=== PATIENT | female | born 1955 | race Caucasian/White ===

== ENCOUNTER 2018-10-09 14:42 | Inpatient (IN) | payer OTHER ==
[2018-10-09] MEDS ORDERED: SODIUM CHLORIDE 1,000 ML IV STA ×2 (14:56→17:15)
--- NOTE | 2018-10-09 14:56 | PDOC ---
Rapid Medical Evaluation Chief Complaint: Nausea Time Seen by Provider: 10/09/18 14:55 Medical Evaluation: Allergies Allergy/AdvReac Type Severity Reaction Status Date / Time No Known Allergies Allergy Verified 10/09/18 14:55 10/09/18 16:41 I have performed a brief in-person evaluation of this patient. The patient presents with a chief complaint of: fever, nausea Pertinent physical exam findings:stable and in NAD, non-focal I have ordered the following:labs The patient will proceed to the ED for further evaluation.
[2018-10-09] MEDS ORDERED: ONDANSETRON 4 MG/2 ML VIAL IVPUSH ONE (14:57)
--- NOTE | 2018-10-09 15:01 | PDOC ---
History of Present Illness - General Chief Complaint: Nausea Stated Complaint: NAUSEA/CHILLS/FEVER Time Seen by Provider: 10/09/18 14:55 - History of Present Illness Initial Comments: 10/09/18 16:58 The patient is a 63 year old female with a history of HTN who presents for evaluation of nausea, chills, and fever. The patient reports severe nausea with associated fever to 103 beginning 3 days ago that has been persistent prompting her presentation to the ED for further evaluation. She notes that her urine has been extremely foul smelling throughout this time as well. She otherwise denies headache, SOB, chest pain, vomiting, abdominal pain, or changes with bowel movements. Past History - Past Medical History Allergies/Adverse Reactions: Allergies Allergy/AdvReac Type Severity Reaction Status Date / Time No Known Allergies Allergy Verified 10/09/18 14:55 Home Medications: Ambulatory Orders Olmesartan/Hydrochlorothiazide [Benicar Hct 40-12.5 mg Tablet] 1 each PO DAILY 10/09/18 - Suicide/Smoking/Psychosocial Hx Smoking History: Never smoked Information on smoking cessation initiated: No Hx Alcohol Use: No Drug/Substance Use Hx: No Review of Systems - Review of Systems Comments:: 10/09/18 17:02 Constitutional: Fevers, chills, No fatigue, malaise HEENT: No Rhinorrhea, nasal congestion, visual changes Cardiovascular: No chest pain, syncope, palpitations, lightheadedness Respiratory: No Cough, SOB, Hemoptysis, Gastrointestinal: Nausea No Abdominal pain, Vomiting, Constipation, Diarrhea, Melena Genitourinary: Foul smelling urine. No Dysuria, Frequency, Urgency, Hesitancy, Hematuria, Flank pain Musculoskeletal: No Myalgia, arthralgia Skin: No rashes, itching, bruising, pallor Neurologic: No Headache, Dizziness, Numbness, Weakness, or Tingling Psychiatric: No Hallucinations. No SI or HI *Physical Exam - Vital Signs Last Vital Signs Temp Pulse Resp BP Pulse Ox 103.0 F H 109 H 16 123/60 96 10/09/18 14:55 10/09/18 14:55 10/09/18 14:55 10/09/18 14:55 10/09/18 14:55 - Physical Exam Comments: 10/09/18 17:05 General Appearance: Nourished. No Apparent Distress HEENT: No Pharyngeal Erythema, Tonsillar Exudate, Tonsillar Erythema Neck: No Cervical Lymphadenopathy Respiratory/Chest: Lungs Clear, Normal Breath Sounds. No Crackles, Rales, Rhonchi, Wheezing Cardiovascular: Regular Rhythm, Tachycardic Rate. No Murmur, Gallops, Rubs Gastrointestinal/Abdominal: Normal Bowel Sounds, Soft. No Guarding, Rebound, Tenderness Musculoskeletal: No CVA Tenderness Extremity: Normal Capillary Refill Integumentary: Normal Color, Dry, Warm Neurologic: Fully Oriented, Alert, Normal Mood/Affect, Normal Response, Heart Score/ECG Review #1 ECG reviewed & interpreted by me at: 17:06 10/09/18 17:06 HR 111 NM 148 QRS 94 QTc 443 Sinus Tachycardia Incomplete right bundle branch block No Acute ST Changes ED Treatment Course - LABORATORY CBC & Chemistry Diagram: 10/09/18 15:20 10/09/18 15:16 Medical Decision Making - Medical Decision Making 10/09/18 17:09 The patient is a 63 year old female with a history of HTN who presents for evaluation of nausea, chills, and fever. Differential includes but is not limited to: Sepsis, UTI, Infectious, Metabolic Derangement. Given the patient' s history and physical exam, we are concerned for sepsis due to a UTI. We will obtain a cbc, cmp, troponin, lactate, coags, ua, blood cultures, urine cultures , ekg, chest plain film to evaluate further. We will treat with tylenol, iv fluids, zofran, ceftriaxone, and continue to monitor and reassess while here in the ED. The patient will likely require admission for further management. 10/09/18 23:54 CBC demonstrated elevated WBC to 11. CMP is unremarkable. Troponin, lactate are unremarkable. UA demonstrates positive nitrites, positive leuk esterase, with elevated WBC consistent with a UTI. Chest plain film is unremarkable. The patient will require admission for further monitoring and management. We discussed the case with the admitting team who accepted the patient for admission. *DC/Admit/Observation/Transfer Diagnosis at time of Disposition: Sepsis Qualifiers: Sepsis type: sepsis due to unspecified organism Qualified Code(s): A41.9 - Sepsis, unspecified organism UTI (urinary tract infection) Qualifiers: Urinary tract infection type: site unspecified Hematuria presence: without hematuria Qualified Code(s): N39.0 - Urinary tract infection, site not specified - Discharge Dispostion Condition at time of disposition: Stable Decision to Admit order: Yes - Referrals - Patient Instructions - Post Discharge Activity
[2018-10-09] MEDS ORDERED: ACETAMINOPHEN INJECTION 100 ML IVPB ONE (15:28)
[2018-10-09] MEDS ORDERED: ONDANSETRON 4 MG/2 ML VIAL ONE (15:29)
[2018-10-09] MEDS ORDERED: ACETAMINOPHEN 1000 MG/100 ML VIAL (NON FORMULARY) IVPB ONE (15:32)
[2018-10-09 15:36] LABS: BASO % 0.3 % (0-2.0); EOS % 0.1 % (0-4.5); HEMATOCRIT 35.3 % (32.4-45.2); HEMOGLOBIN 12.1 GM/dL (10.7-15.3); LYMPH % 14.6 % (8-40); MCH 29.7 pg (25.7-33.7); MCHC 34.4 g/dl (32.0-36.0); MEAN CELL VOLUME 86.3 fl (80-96); MEAN PLT VOLUME 7.4 fl (7.5-11.1); MONO % 11.5 % (3.8-10.2); NEUT % 73.5 % (42.8-82.8); PLATELET COUNT 274 K/MM3 (134-434); RBC 4.09 M/mm3 (3.60-5.2); RDW 12.9 % (11.6-15.6); WHITE BLOOD COUNT 11.8 K/mm3 (4.0-10.0)
[2018-10-09 15:50] LABS: INR 1.17 (0.83-1.09); PROTHROMBIN TIME (PATIENT) 13.8 SEC (9.7-13.0)
[2018-10-09 15:52] LABS: ACTIVATED PTT 30.9 SECONDS (25.2-36.5)
[2018-10-09 16:11] LABS: ALBUMIN 3.3 g/dl (3.4-5.0); ALK PHOS 80 U/L (45-117); ANION GAP 9 MMOL/L (8-16); BILIRUBIN,TOTAL 0.6 mg/dL (0.2-1); BLOOD UREA NITROGEN 16.9 mg/dL (7-18); CALCIUM 8.8 mg/dL (8.5-10.1); CHLORIDE 100 mmol/L (98-107); CO2 25 mmol/L (21-32); CREATININE 0.7 mg/dL (0.55-1.3); GLUCOSE,RANDOM 99 mg/dL (74-106); LIPASE 110 U/L (73-393); POTASSIUM 3.8 mmol/L (3.5-5.1); SGOT/AST 12 U/L (15-37); SGPT/ALT 12 U/L (13-61); SODIUM 135 mmol/L (136-145); TOT PROT 7.3 g/dl (6.4-8.2)
[2018-10-09 16:56] LABS: EPI CELLS 2.3 /HPF (0-5/HPF); HYALINE CASTS 6 /lpf (0-8); PH,URINE 5.5 (5.0-8.0); URINE APPEARANCE CLOUDY; URINE BACTERIA 3842.5 /hpf (NEGATIVE); URINE BILIRUBIN NEGATIVE (NEGATIVE); URINE COLOR YELLOW; URINE GLUCOSE (UA) NEGATIVE (NEGATIVE); URINE KETONE 1+ (NEGATIVE); URINE LEUK ESTERASE 2+ (NEGATIVE); URINE NITRITE POSITIVE (NEGATIVE); URINE PROTEIN 1+ (NEGATIVE); URINE RBC 6 /hpf (0-4); URINE WBC 82 /hpf (0-5)
[2018-10-09] MEDS ORDERED: CEFTRIAXONE 1 GM in DEXTROSE 5%-WATER - 100 ML IVPB ONE (16:58)
[2018-10-09] MEDS ORDERED: cefTRIAXone SODIUM 1 GM VIAL ONE (17:30)
--- NOTE | 2018-10-09 17:45 | HP ---
CHIEF COMPLAINT: nausea, weakness, fevers, foul smelling urine PCP: Dr. Green HISTORY OF PRESENT ILLNESS: 63 yof with PMHx of HTN, comes with 3-4 days of nausea, poor oral intake, weakness, foul smelling urine. Noted with fevers upto 103. No recent travel, antibiotics, no h/o recurrent UTIs. Denies any abdominal or flank pain, dysuria, urinary frequency or urgency, but does endorse foul smelling dark urine. 12 point ROS done, neg except above. No URI like illness, cough, dyspnea, chest pain, palpitations, changes in bowels, vomitting. ER course was notable for: (1) Fever 103 (2) NS 1 L IVF bolus (3) Ceftriaxone Recent Travel: Denies PAST MEDICAL HISTORY: HTN PAST SURGICAL HISTORY: x 2 Social History: Smoking:Denies Alcohol:occasional wine Drugs: denies Works in physician's office, lives with , independent in ADLs Family History: Allergies No Known Allergies Allergy (Verified 10/09/18 14:55) HOME MEDICATIONS: Home Medications Medication Instructions Recorded Olmesartan/Hydrochlorothiazide 1 each PO DAILY 10/09/18 [Benicar Hct 40-12.5 mg Tablet] REVIEW OF SYSTEMS 12 point ROS done, neg except above. PHYSICAL EXAMINATION Vital Signs - 24 hr 10/09/18 10/09/18 14:55 17:14 Temperature 103.0 F H 98.8 F Pulse Rate 109 H Pulse Rate [ 84 Left Radial] Respiratory 16 16 Rate Blood Pressure 123/60 Blood Pressure 100/52 L [Left] O2 Sat by Pulse 96 96 Oximetry (%) Intake & Output 10/06/18 10/07/18 10/08/18 10/09/18 23:59 23:59 23:59 23:59 Weight 142 lb GENERAL: Awake, alert, and fully oriented, in no acute distress. HEAD: Normal with no signs of trauma. EYES: Pupils equal, round and reactive to light, extraocular movements intact, sclera anicteric, conjunctiva clear. No lid lag. EARS, NOSE, THROAT: Ears normal, nares patent, oropharynx clear without exudates. Moist mucous membranes. NECK: Normal range of motion, supple, no JVD LUNGS: Breath sounds equal, clear to auscultation bilaterally. No wheezes, and no crackles. No accessory muscle use. HEART: Regular rate and rhythm, normal S1 and S2 ABDOMEN: Soft, nontender, not distended, normoactive bowel sounds, no guarding, no rebound, no masses. No hepatomegaly or splenomegaly. No suprapubic or CVA tenderness MUSCULOSKELETAL: Normal range of motion at all joints. No bony deformities or tenderness. No CVA tenderness. UPPER EXTREMITIES: 2+ pulses, warm, well-perfused. No cyanosis. No clubbing. No peripheral edema. LOWER EXTREMITIES: 2+ pulses, warm, well-perfused. No calf tenderness. No peripheral edema. NEUROLOGICAL: AAOx3, facial symmetry, sensation intact to light touch, Cranial nerves II-XII intact. Normal speech. Gait not observed PSYCHIATRIC: Cooperative. Good eye contact. Appropriate mood and affect. SKIN: Warm, dry, normal turgor, no rashes or lesions noted, normal capillary refill. Laboratory Results - last 24 hr 10/09/18 10/09/18 10/09/18 15:16 15:16 15:20 WBC 11.8 H RBC 4.09 Hgb 12.1 Hct 35.3 MCV 86.3 MCH 29.7 MCHC 34.4 RDW 12.9 Plt Count 274 MPV 7.4 L Absolute Neuts (auto) 8.7 H Neutrophils % 73.5 Lymphocytes % 14.6 Monocytes % 11.5 H Eosinophils % 0.1 Basophils % 0.3 Nucleated RBC % 0 PT with INR 13.80 H INR 1.17 H PTT (Actin FS) 30.9 Sodium 135 L Potassium 3.8 Chloride 100 Carbon Dioxide 25 Anion Gap 9 BUN 16.9 Creatinine 0.7 Est GFR (CKD-EPI)AfAm 106.87 Est GFR (CKD-EPI)NonAf 92.21 Random Glucose 99 Lactic Acid Calcium 8.8 Total Bilirubin 0.6 AST 12 L ALT 12 L Alkaline Phosphatase 80 Troponin I < 0.02 Total Protein 7.3 Albumin 3.3 L Lipase 110 Urine Color Urine Appearance Urine pH Ur Specific [place] Urine Protein Urine Glucose (UA) Urine Ketones Urine Blood Urine Nitrite Urine Bilirubin Urine Urobilinogen Ur Leukocyte Esterase Urine WBC (Auto) Urine RBC (Auto) Urine Casts (Auto) U Epithel Cells (Auto) Urine Bacteria (Auto) 10/09/18 10/09/18 15:25 16:35 WBC RBC Hgb Hct MCV MCH MCHC RDW Plt Count MPV Absolute Neuts (auto) Neutrophils % Lymphocytes % Monocytes % Eosinophils % Basophils % Nucleated RBC % PT with INR INR PTT (Actin FS) Sodium Potassium Chloride Carbon Dioxide Anion Gap BUN Creatinine Est GFR (CKD-EPI)AfAm Est GFR (CKD-EPI)NonAf Random Glucose Lactic Acid 0.8 Calcium Total Bilirubin AST ALT Alkaline Phosphatase Troponin I Total Protein Albumin Lipase Urine Color Yellow Urine Appearance Cloudy Urine pH 5.5 Ur Specific [place] 1.017 Urine Protein 1+ H Urine Glucose (UA) Negative Urine Ketones 1+ H Urine Blood 3+ H Urine Nitrite Positive H Urine Bilirubin Negative Urine Urobilinogen 1.0 Ur Leukocyte Esterase 2+ H Urine WBC (Auto) 82 Urine RBC (Auto) 6 Urine Casts (Auto) 6 U Epithel Cells (Auto) 2.3 Urine Bacteria (Auto) 3842.5 EKG sinus tach, incomplete RBBB CXR images reviewed, await official read ASSESSMENT/PLAN: 63 yof with PMHx of HTN admitted with sepsis secondary to UTI -Sepsis secondary to UTI -Dehydration -HTN Plan: Ceftriaxone, blood/urine cultures. Aggressive hydration, monitor hemodynamics. No abdominal or flank pain and benign abdominal exam. Imaging if fevers fail to resolve or new symptoms/concerns. Hold anti-hypertensives Supportive tx with zofran/PPI DVTPPX Lovenox Dispo in 48 hours pending clinical improvement and cultures. Plan discussed with patient and at bedside in detail, all questions answered. total admit time 65 min. Visit type - Emergency Visit Emergency Visit: Yes ED Registration Date: 10/09/18 Care time: The patient presented to the Emergency Department on the above date and was hospitalized for further evaluation of their emergent condition. - New Patient This patient is new to me today: Yes Date on this admission: 10/09/18 - Critical Care Critical Care patient: No
[2018-10-09] MEDS ORDERED: ONDANSETRON 4 MG/2 ML VIAL IVPUSH PRN (17:53)
--- NOTE | 2018-10-09 18:13 | PDOC ---
Documentation entered by Leti Benavides SCRIBE, acting as scribe for Ana M Ríos MD. Ana M Ríos MD: This documentation has been prepared by the induibe, Leti Benavides SCRIBE, under my direction and personally reviewed by me in its entirety. I confirm that the documentation accurately reflects all work, treatment, procedures, and medical decision making performed by me. Attending Attestation - Resident Resident Name: Noah Trujillo - ED Attending Attestation I have performed the following: I have examined & evaluated the patient, The case was reviewed & discussed with the resident, I agree w/resident's findings & plan, Exceptions are as noted - HPI HPI: 10/09/18 16:09 The patient is a 63-year-old female with no reported past medical history presents to the emergency department with fever, chills, headache, and nausea since Friday (10/06). The patient reports on Friday evening he went out for dinner, where she started to have chills. The patient states she through the room was close, however, when she went to the bathroom, she noticed foul smelling urine. The patient reports since then, shes been having extreme nausea , headache, fever, and chills. The patient reports she had a high-grade temperature of 103. Denies recent travel, unusual food, known tick bite, redness , new rashes, neck pain, abdominal/flank pain, or vomiting. Allergies: NKDA Social history: No reported use of tobacco, alcohol or recreational drugs. PCP: Dr. Coleman. - Physicial Exam PE: 10/09/18 17:16 GENERAL: Awake, alert and oriented. The patient is in no acute distress. ENT: Ears normal, nares patent, oropharynx clear without exudates. Moist mucous membranes. NECK: Normal range of motion, supple, no nuchal rigidity LUNGS: Breath sounds equal, clear to auscultation bilaterally. No wheezes, and no crackles. HEART: Regular rate and rhythm, normal S1 and S2 without murmur, rub or gallop. ABDOMEN: Soft, nontender, normoactive bowel sounds. No guarding, no rebound. No masses palpable. No CVA tenderness. EXTREMITIES: Normal range of motion, no edema. NEUROLOGICAL: Answering all questions. Cranial nerves II through XII grossly intact. Normal speech. No focal neurological deficits. SKIN: +felt Warm, Dry, normal turgor, no rashes or lesions noted. - Medical Decision Making 10/09/18 15:45 63 yo F presenting to the ER with a complaint of fevers Symptoms present for 3 days EKG - Sinus rhythm rate of 111 bpm, axis nml, intervals nml, no st elevation or depression, incomplete RBBB Laboratory Tests 10/09/18 15:20 WBC 11.8 H Hgb 12.1 Hct 35.3 Plt Count 274 10/09/18 15:46 10/09/18 18:02 Laboratory Tests 10/09/18 10/09/18 15:16 16:35 Sodium 135 L Potassium 3.8 Chloride 100 Carbon Dioxide 25 BUN 16.9 Est GFR (CKD-EPI)AfAm 106.87 Troponin I < 0.02 Urine Blood 3+ H Urine Nitrite Positive H Ur Leukocyte Esterase 2+ H Urine WBC (Auto) 82 Urine RBC (Auto) 6 Urine Bacteria (Auto) 3842.5 10/09/18 18:11 CXR does not appear to show an infiltrate UA appears positive Will give Ceftriaxone Will hydrate Clinical Impression: UTI, initial presentation
[2018-10-09] MEDS: SODIUM CHLORIDE 1,000 ML IV SCH (20:49)
[2018-10-09 22:44] VITALS: BMI 25.5
[2018-10-10] MEDS: ACETAMINOPHEN 325 MG TABLET (FP) PO PRN ×3 (00:13→20:30)
[2018-10-10] MEDS: SODIUM CHLORIDE 1,000 ML IV SCH ×3 (05:19→18:42)
[2018-10-10 07:55] LABS: BASO % 0.5 % (0-2.0); EOS % 0.2 % (0-4.5); HEMATOCRIT 31.9 % (32.4-45.2); HEMOGLOBIN 10.7 GM/dL (10.7-15.3); LYMPH % 23.4 % (8-40); MCH 29.4 pg (25.7-33.7); MCHC 33.5 g/dl (32.0-36.0); MEAN CELL VOLUME 87.8 fl (80-96); MEAN PLT VOLUME 7.7 fl (7.5-11.1); MONO % 15.1 % (3.8-10.2); NEUT % 60.8 % (42.8-82.8); RBC 3.63 M/mm3 (3.60-5.2); RDW 13.1 % (11.6-15.6); WHITE BLOOD COUNT 12.2 K/mm3 (4.0-10.0)
[2018-10-10 08:18] LABS: ALBUMIN 2.6 g/dl (3.4-5.0); BILIRUBIN,TOTAL 0.6 mg/dL (0.2-1); BLOOD UREA NITROGEN 10.8 mg/dL (7-18); CREATININE 0.6 mg/dL (0.55-1.3); MAGNESIUM 2.2 mg/dL (1.8-2.4); PHOSPHOROUS 3.1 mg/dL (2.5-4.9); POTASSIUM 3.6 mmol/L (3.5-5.1); TOT PROT 6.1 g/dl (6.4-8.2)
[2018-10-10 09:05] LABS: PLATELET COUNT 216 K/MM3 (134-434)
[2018-10-10] MEDS ORDERED: DEXTROSE 5%-WATER - 50 ML IVPB ONE (09:33)
[2018-10-10] MEDS ORDERED: cefTRIAXone SODIUM 1 GM VIAL ONE (09:33)
[2018-10-10] MEDS ORDERED: ENOXAPARIN NA (PORCINE) 40 MG/0.4 ML DISP.SYRIN SQ SCH (10:00)
[2018-10-10] MEDS ORDERED: CEFTRIAXONE 1 GM in DEXTROSE 5%-WATER - 50 ML IVPB SCH (10:00)
[2018-10-10] MEDS: PANTOPRAZOLE 20 MG TABLET (FP) PO SCH (10:44)
--- NOTE | 2018-10-10 14:12 | PN ---
Physical Exam: SUBJECTIVE: Patient seen and examined, still with cloudy urine, some chills overnight. Continues to deny any abdominal or back pain, dyspnea or concerning otherwise OBJECTIVE: Vital Signs Period Temp Pulse Resp BP Sys/Farah Pulse Ox Last 24 Hr 98.7 F-103.0 F 72-109 16-20 94-123/52-68 96-100 GENERAL: The patient is awake, alert, and fully oriented, in no acute distress. HEAD: Normal with no signs of trauma. EYES: PERRL, extraocular movements intact, sclera anicteric, conjunctiva clear. No ptosis. ENT: Ears normal, nares patent, oropharynx clear without exudates, moist mucous membranes. NECK: Trachea midline, full range of motion, supple. LUNGS: Breath sounds equal, clear to auscultation bilaterally, no wheezes, no crackles, no accessory muscle use. HEART: Regular rate and rhythm, S1, S2 ABDOMEN: Soft, nontender, nondistended, normoactive bowel sounds, no guarding, no rebound, no suprapubic or CVA tenderness EXTREMITIES: 2+ pulses, warm, well-perfused, no edema. PSYCH: Normal mood, normal affect. SKIN: Warm, dry, normal turgor, no rashes or lesions noted Laboratory Results - last 24 hr 10/09/18 10/09/18 10/09/18 15:16 15:16 15:20 WBC 11.8 H RBC 4.09 Hgb 12.1 Hct 35.3 MCV 86.3 MCH 29.7 MCHC 34.4 RDW 12.9 Plt Count 274 MPV 7.4 L Absolute Neuts (auto) 8.7 H Neutrophils % 73.5 Lymphocytes % 14.6 Monocytes % 11.5 H Eosinophils % 0.1 Basophils % 0.3 Nucleated RBC % 0 PT with INR 13.80 H INR 1.17 H PTT (Actin FS) 30.9 Sodium 135 L Potassium 3.8 Chloride 100 Carbon Dioxide 25 Anion Gap 9 BUN 16.9 Creatinine 0.7 Est GFR (CKD-EPI)AfAm 106.87 Est GFR (CKD-EPI)NonAf 92.21 Random Glucose 99 Lactic Acid Calcium 8.8 Phosphorus Magnesium Total Bilirubin 0.6 AST 12 L ALT 12 L Alkaline Phosphatase 80 Troponin I < 0.02 Total Protein 7.3 Albumin 3.3 L Lipase 110 Urine Color Urine Appearance Urine pH Ur Specific [place] Urine Protein Urine Glucose (UA) Urine Ketones Urine Blood Urine Nitrite Urine Bilirubin Urine Urobilinogen Ur Leukocyte Esterase Urine WBC (Auto) Urine RBC (Auto) Urine Casts (Auto) U Epithel Cells (Auto) Urine Bacteria (Auto) 10/09/18 10/09/18 10/10/18 15:25 16:35 07:34 WBC 12.2 H RBC 3.63 Hgb 10.7 Hct 31.9 L MCV 87.8 MCH 29.4 MCHC 33.5 RDW 13.1 Plt Count 216 D MPV 7.7 Absolute Neuts (auto) 7.4 Neutrophils % 60.8 Lymphocytes % 23.4 D Monocytes % 15.1 H Eosinophils % 0.2 D Basophils % 0.5 Nucleated RBC % 0 PT with INR INR PTT (Actin FS) Sodium Potassium Chloride Carbon Dioxide Anion Gap BUN Creatinine Est GFR (CKD-EPI)AfAm Est GFR (CKD-EPI)NonAf Random Glucose Lactic Acid 0.8 Calcium Phosphorus Magnesium Total Bilirubin AST ALT Alkaline Phosphatase Troponin I Total Protein Albumin Lipase Urine Color Yellow Urine Appearance Cloudy Urine pH 5.5 Ur Specific [place] 1.017 Urine Protein 1+ H Urine Glucose (UA) Negative Urine Ketones 1+ H Urine Blood 3+ H Urine Nitrite Positive H Urine Bilirubin Negative Urine Urobilinogen 1.0 Ur Leukocyte Esterase 2+ H Urine WBC (Auto) 82 Urine RBC (Auto) 6 Urine Casts (Auto) 6 U Epithel Cells (Auto) 2.3 Urine Bacteria (Auto) 3842.5 10/10/18 07:34 WBC RBC Hgb Hct MCV MCH MCHC RDW Plt Count MPV Absolute Neuts (auto) Neutrophils % Lymphocytes % Monocytes % Eosinophils % Basophils % Nucleated RBC % PT with INR INR PTT (Actin FS) Sodium 142 Potassium 3.6 Chloride 110 H Carbon Dioxide 25 Anion Gap 7 L BUN 10.8 Creatinine 0.6 Est GFR (CKD-EPI)AfAm 112.43 Est GFR (CKD-EPI)NonAf 97.01 Random Glucose 95 Lactic Acid Calcium 8.0 L Phosphorus 3.1 Magnesium 2.2 Total Bilirubin 0.6 AST 25 ALT 20 Alkaline Phosphatase 70 Troponin I Total Protein 6.1 L Albumin 2.6 L Lipase Urine Color Urine Appearance Urine pH Ur Specific [place] Urine Protein Urine Glucose (UA) Urine Ketones Urine Blood Urine Nitrite Urine Bilirubin Urine Urobilinogen Ur Leukocyte Esterase Urine WBC (Auto) Urine RBC (Auto) Urine Casts (Auto) U Epithel Cells (Auto) Urine Bacteria (Auto) Active Medications Generic Name Dose Route Start Last Admin Trade Name Antonio PRN Reason Stop Dose Admin Acetaminophen 650 mg 10/09/18 20:22 10/10/18 12:49 Tylenol - PO 650 mg Q4H PRN Administration FEVER Sodium Chloride 1,000 mls @ 125 mls/hr 10/09/18 18:00 10/10/18 05:19 Normal Saline - IV 125 mls/hr ASDIR DIMA Administration Ceftriaxone Sodium 1 gm/ 50 mls @ 100 mls/hr 10/10/18 10:00 10/10/18 10:45 Dextrose IVPB 100 mls/hr DAILY DIMA Administration Protocol Ondansetron HCl 4 mg 10/09/18 17:53 10/10/18 00:13 Zofran Injection IVPUSH 4 mg Q6H PRN Administration NAUSEA Pantoprazole Sodium 20 mg 10/10/18 10:00 10/10/18 10:44 Protonix - PO 20 mg DAILY DIMA Administration CT A/P and renal/Bladder US results reviewed ASSESSMENT/PLAN: 63 yof with PMHx of HTN admitted with sepsis secondary to UTI -Acute right pyelonephritis/Complicated UTI with sepsis -Suspect obstructive uropathy with right ureteral stone/dilatation -Dehydration -HTN Plan: Persistent fevers Imaging results reviewed Urology consulted, case discussed with Dr. Guerrero, recommend IR input. Possible PCN vs cystscopy. Case discussed with Dr. Castillo, to review images and address PCN accordingly. Monitor hemodynamics closely. NPO for now, discussed with RN (per patient last meal breakfast this AM) Aggressive hydration Hold anti-hypertensives. Supportive tx with zofran/PPI DVTPPX Hold lovenox for now Dispo pending clinical course Plan discussed with patient and nursing, all questions answered. Visit type - Emergency Visit Emergency Visit: Yes ED Registration Date: 10/09/18 Care time: The patient presented to the Emergency Department on the above date and was hospitalized for further evaluation of their emergent condition. - New Patient This patient is new to me today: No - Critical Care Critical Care patient: No - Discharge Referral Referred to [facility] No
--- NOTE | 2018-10-10 16:04 | CON.GU ---
Consult Consult Specialty:: Urology Referred by:: Dr leal Reason for Consultation:: 63 yo female w 4 day hx of nausea and cloudy urine - History of Present Illness Chief Complaint: UTI fever - Past Medical History ...LMP: 09/13/07 ...: No - Alcohol/Substance Use Hx Alcohol Use: No - Smoking History Smoking history: Never smoked Have you smoked in the past 12 months: No Home Medications - Allergies Allergies/Adverse Reactions: Allergies Allergy/AdvReac Type Severity Reaction Status Date / Time No Known Allergies Allergy Verified 10/09/18 14:55 - Home Medications Home Medications: Ambulatory Orders Olmesartan/Hydrochlorothiazide [Benicar Hct 40-12.5 mg Tablet] 1 each PO DAILY 10/09/18 Physical Exam- Vital Signs: Vital Signs Temperature 102.6 F H 10/10/18 14:22 Pulse Rate 93 H 10/10/18 14:22 Respiratory Rate 18 10/10/18 14:22 Blood Pressure 106/56 L 10/10/18 14:22 O2 Sat by Pulse Oximetry (%) 100 10/10/18 09:00 Constitutional: Yes: Well Nourished Eyes: Yes: WNL HENT: Yes: WNL Cardiovascular: Yes: Regular Rate and Rhythm Respiratory: Yes: WNL Gastrointestinal: Yes: WNL Labs: CBC, BMP 10/10/18 07:34 10/10/18 07:34 Imaging - Results Cat Scan: Image Reviewed Ultrasound: Report Reviewed Problem List - Problems (1) UTI (urinary tract infection) Assessment/Plan: reviewed ct images and discussed case w Dr Bruno Does not appear to have hydronephrosis or obstruction some irregularity of the right kidney c/w infection Continue iv abx ID consult also CT urogram to r/o functional obstruction as is persistent fever Code(s): N39.0 - URINARY TRACT INFECTION, SITE NOT SPECIFIED Qualifiers: Urinary tract infection type: site unspecified Hematuria presence: without hematuria Qualified Code(s): N39.0 - Urinary tract infection, site not specified
[2018-10-10] MEDS ORDERED: DEXTROSE 5%-WATER 100 ML IVPB ONE (16:34)
[2018-10-10] MEDS ORDERED: MEROPENEM 1 GM VIAL (RESTRICTED TO ID) IVPB ONE (16:34)
[2018-10-10] MEDS: MEROPENEM 1 GM in DEXTROSE 5%-WATER 100 ML IVPB SCH (16:57)
[2018-10-10] MEDS ORDERED: MEROPENEM 1 GM in DEXTROSE 5%-WATER 100 ML IVPB SCH (18:00)
[2018-10-11] MEDS ORDERED: MEROPENEM 1 GM VIAL (RESTRICTED TO ID) IVPB ONE ×2 (02:22→09:38)
[2018-10-11] MEDS ORDERED: DEXTROSE 5%-WATER 100 ML IVPB ONE ×3 (02:23→16:48)
[2018-10-11] MEDS: MEROPENEM 1 GM in DEXTROSE 5%-WATER 100 ML IVPB SCH ×2 (02:34→10:08)
[2018-10-11] MEDS: SODIUM CHLORIDE 1,000 ML IV SCH (04:31)
[2018-10-11 07:29] LABS: BASO % 0.3 % (0-2.0); EOS % 1.4 % (0-4.5); HEMATOCRIT 28.9 % (32.4-45.2); HEMOGLOBIN 9.8 GM/dL (10.7-15.3); LYMPH % 24.5 % (8-40); MCH 29.4 pg (25.7-33.7); MCHC 33.8 g/dl (32.0-36.0); MEAN PLT VOLUME 7.7 fl (7.5-11.1); MONO % 12.4 % (3.8-10.2); NEUT % 61.4 % (42.8-82.8); RBC 3.33 M/mm3 (3.60-5.2); RDW 13.3 % (11.6-15.6); WHITE BLOOD COUNT 9.2 K/mm3 (4.0-10.0)
[2018-10-11 07:55] LABS: BLOOD UREA NITROGEN 8.4 mg/dL (7-18); CALCIUM 8.1 mg/dL (8.5-10.1); CREATININE 0.5 mg/dL (0.55-1.3); POTASSIUM 3.5 mmol/L (3.5-5.1)
[2018-10-11 08:37] LABS: PLATELET COUNT 227 K/MM3 (134-434)
[2018-10-11] MEDS: PANTOPRAZOLE 20 MG TABLET (FP) PO SCH (10:07)
--- NOTE | 2018-10-11 11:17 | PN ---
Physical Exam: SUBJECTIVE: Patient seen and examined, feels better, no further nausea or chills. Cloudy urine but no back or abdominal pain noted. OBJECTIVE: Vital Signs Period Temp Pulse Resp BP Sys/Farah Pulse Ox Last 24 Hr 97.8 F-102.6 F 64-93 16-18 104-120/44-67 95-97 Intake & Output 10/08/18 10/09/18 10/10/18 10/11/18 23:59 23:59 23:59 23:59 Intake Total 600 3810 1575 Output Total 800 Balance 600 3010 1575 Weight 148 lb 12.8 oz GENERAL: sitting in bed in no acute distress necK: soft, supple Chest: CTAB, no rales or wheezing Abdomen:soft, NT, ND, no CVA or suprapubic tenderness Extremities: no edema Psych: pleasant, co-operative Laboratory Results - last 24 hr 10/11/18 10/11/18 07:00 07:00 WBC 9.2 RBC 3.33 L Hgb 9.8 L Hct 28.9 L MCV 87.0 MCH 29.4 MCHC 33.8 RDW 13.3 Plt Count 227 MPV 7.7 Absolute Neuts (auto) 5.7 Neutrophils % 61.4 Lymphocytes % 24.5 Monocytes % 12.4 H Eosinophils % 1.4 D Basophils % 0.3 Nucleated RBC % 0 Sodium 142 Potassium 3.5 Chloride 110 H Carbon Dioxide 25 Anion Gap 7 L BUN 8.4 Creatinine 0.5 L Est GFR (CKD-EPI)AfAm 119.38 Est GFR (CKD-EPI)NonAf 103.00 Random Glucose 95 Calcium 8.1 L Active Medications Generic Name Dose Route Start Last Admin Trade Name Freq PRN Reason Stop Dose Admin Acetaminophen 650 mg 10/09/18 20:22 10/10/18 20:30 Tylenol - PO 650 mg Q4H PRN Administration FEVER Sodium Chloride 1,000 mls @ 125 mls/hr 10/09/18 18:00 10/11/18 04:31 Normal Saline - IV 125 mls/hr ASDIR DIMA Administration Meropenem 1 gm/ Dextrose 100 mls @ 200 mls/hr 10/10/18 16:30 10/11/18 10:08 IVPB 200 mls/hr Q8H-IV DIMA Administration Ondansetron HCl 4 mg 10/09/18 17:53 10/10/18 00:13 Zofran Injection IVPUSH 4 mg Q6H PRN Administration NAUSEA Pantoprazole Sodium 20 mg 10/10/18 10:00 10/11/18 10:07 Protonix - PO 20 mg DAILY DIMA Administration Microbiology 10/09/18 16:35 Urine - Urine Clean Catch Urine Culture - Preliminary Lactose Fermenting Neg Bacilli 10/09/18 17:35 Blood - Peripheral Venous Blood Culture - Preliminary NO GROWTH OBTAINED AFTER 24 HOURS, INCUBATION TO CONTINUE FOR 4 DAYS. 10/09/18 15:25 Blood - Peripheral Venous Blood Culture - Preliminary NO GROWTH OBTAINED AFTER 24 HOURS, INCUBATION TO CONTINUE FOR [address] A/P with contrast prelim read results reviewed ASSESSMENT/PLAN: 63 yof with PMHx of HTN admitted with sepsis secondary to UTI -Acute right pyelonephritis/Complicated UTI with sepsis -Suspect obstructive uropathy with right ureteral stone/dilatation -Dehydration -HTN Plan: CT urogram prelim results reviewed, pyelonephritis but no evidence of renal abscess or obstruction. Follow up official read. Clinically improved, urine cultures noted. Meropenem day 2 (total abx day 3) ID/urology input. Add K to IVF Hold anti-hypertensives for now DVTPPX no surgical intervention plan, resume lovenox Dispo in 48 hours if fevers resolved pending urine cx. Plan discussed with patient and nursing in detail, all questions answered. Visit type - Emergency Visit Emergency Visit: Yes ED Registration Date: 10/09/18 Care time: The patient presented to the Emergency Department on the above date and was hospitalized for further evaluation of their emergent condition. - New Patient This patient is new to me today: No - Critical Care Critical Care patient: No - Discharge Referral Referred to [facility] No
[2018-10-11] MEDS: SODIUM CHLORIDE 0.9%/KCL 20 MEQ/1,000 ML INFUS.BAG IV SCH ×2 (12:31→23:28)
[2018-10-11 12:43] LABS: BASO % 0.7 % (0-2.0); EOS % 1.1 % (0-4.5); HEMATOCRIT 28.5 % (32.4-45.2); HEMOGLOBIN 9.8 GM/dL (10.7-15.3); LYMPH % 28.2 % (8-40); MCH 29.8 pg (25.7-33.7); MCHC 34.3 g/dl (32.0-36.0); MEAN CELL VOLUME 86.8 fl (80-96); RBC 3.29 M/mm3 (3.60-5.2); RDW 13.3 % (11.6-15.6); WHITE BLOOD COUNT 9.1 K/mm3 (4.0-10.0)
[2018-10-11 12:58] LABS: BLOOD UREA NITROGEN 7.7 mg/dL (7-18); CALCIUM 8.2 mg/dL (8.5-10.1); CREATININE 0.5 mg/dL (0.55-1.3); POTASSIUM 3.6 mmol/L (3.5-5.1)
[2018-10-11 13:01] LABS: PLATELET COUNT 239 K/MM3 (134-434)
--- NOTE | 2018-10-11 15:42 | CON.ID ---
Consult Consult Specialty:: infectious disease Referred by:: hsopitalist Reason for Consultation:: fever hypotension - History of Present Illness Chief Complaint: fever, nausea History of Present Illness: 63 yo female from home, no recent antibiotics, no travel admitted from home with fever, nausea and chills since last Friday she reports cloudy urine but denied hematuria or frequency finally came to ED on friday with fever 103 has continued to have intermittent fevers ct scan with evidence right sided pyelonephritis able to eat today, nausea has resolved - History Source History Provided By: Patient - Past Medical History Cardio/Vascular: Yes: HTN ...LMP: 09/13/07 ...: No - Past Surgical History Past Surgical History: Yes: - Alcohol/Substance Use Hx Alcohol Use: No - Smoking History Smoking history: Never smoked Have you smoked in the past 12 months: No - Social History Usual Living Arrangement: With Spouse ADL: Independent Occupation: workd in doctor's office Place of : [facility] [place] History of Recent Travel: No Home Medications - Allergies Allergies/Adverse Reactions: Allergies Allergy/AdvReac Type Severity Reaction Status Date / Time No Known Allergies Allergy Verified 10/09/18 14:55 - Home Medications Home Medications: Ambulatory Orders Olmesartan/Hydrochlorothiazide [Benicar Hct 40-12.5 mg Tablet] 1 each PO DAILY 10/09/18 Family Disease History - Family Disease History Family History: Denies Review of Systems - Review of Systems Constitutional: reports: Chills, Fever, Loss of Appetite Eyes: reports: No Symptoms HENT: reports: No Symptoms. denies: Difficult Swallowing, Throat Pain Neck: reports: No Symptoms Cardiovascular: denies: Chest Pain, Edema Respiratory: denies: Cough, SOB on Exertion Gastrointestinal: reports: Nausea. denies: Abdominal Pain, Constipation, Diarrhea, Vomiting Genitourinary: denies: Burning, Discharge, Dysuria, Urgency Breasts: reports: No Symptoms Reported Musculoskeletal: reports: No Symptoms Integumentary: reports: No Symptoms Neurological: reports: No Symptoms Physical Exam Vital Signs: Vital Signs Temperature 98.9 F 10/11/18 15:17 Pulse Rate 85 10/11/18 15:17 Respiratory Rate 18 10/11/18 15:17 Blood Pressure 124/70 10/11/18 15:17 O2 Sat by Pulse Oximetry (%) 95 10/11/18 10:00 Constitutional: Yes: Well Nourished, No Distress, Calm Eyes: Yes: Conjunctiva Clear HENT: Yes: Atraumatic, Normocephalic Neck: Yes: Supple, Trachea Midline Cardiovascular: Yes: Regular Rate and Rhythm Respiratory: Yes: Regular, CTA Bilaterally Gastrointestinal: Yes: Normal Bowel Sounds, Soft ...Rectal Exam: Yes: Deferred Renal/: No: Bladder Distention, CVA Tenderness - Left, CVA Tenderness - Right Musculoskeletal: Yes: WNL Extremities: Yes: WNL Edema: No Peripheral Pulses WNL: No Integumentary: No: Rash Neurological: Yes: Alert, Oriented Labs: CBC, BMP 10/11/18 11:35 10/11/18 11:35 Microbiology 10/09/18 15:25 Blood - Peripheral Venous Blood Culture - Preliminary NO GROWTH OBTAINED AFTER 48 HOURS, INCUBATION TO CONTINUE FOR 3 DAYS. 10/09/18 16:35 Urine - Urine Clean Catch Urine Culture - Preliminary Lactose Fermenting Neg Bacilli 10/09/18 17:35 Blood - Peripheral Venous Blood Culture - Preliminary NO GROWTH OBTAINED AFTER 24 HOURS, INCUBATION TO CONTINUE FOR 4 DAYS. Imaging - Results Cat Scan: Report Reviewed (right kidney pyelonephritis) Problem List - Problems (1) Sepsis Code(s): A41.9 - SEPSIS, UNSPECIFIED ORGANISM Qualifiers: Sepsis type: sepsis due to unspecified organism Qualified Code(s): A41.9 - Sepsis, unspecified organism (2) UTI (urinary tract infection) Code(s): N39.0 - URINARY TRACT INFECTION, SITE NOT SPECIFIED Qualifiers: Urinary tract infection type: site unspecified Hematuria presence: without hematuria Qualified Code(s): N39.0 - Urinary tract infection, site not specified Assessment/Plan doing well no signs of obstructive uropathy will switch to ceftriaxone and f/u cultures in am
[2018-10-11] MEDS: CEFTRIAXONE 2 GM in DEXTROSE 5%-WATER 100 ML IVPB SCH (16:53)
--- NOTE | 2018-10-12 00:33 | EKG ---
Test Reason : Blood Pressure : / mmHG Vent. Rate : 111 BPM Atrial Rate : 111 BPM P-R Int : 148 ms QRS Dur : 094 ms QT Int : 326 ms P-R-T Axes : 045 061 051 degrees QTc Int : 443 ms SINUS TACHYCARDIA INCOMPLETE RIGHT BUNDLE BRANCH BLOCK BORDERLINE ECG WHEN COMPARED WITH ECG OF 21-AUG-2017 15:50, VENT. RATE HAS INCREASED BY 42 BPM Confirmed by MD Kirill, Willy ([id number]) on 10/12/2018 12:33:00 AM Referred By: Confirmed By:Willy Roy MD
[2018-10-12 08:02] LABS: BASO % 0.5 % (0-2.0); EOS % 2.9 % (0-4.5); HEMATOCRIT 30.5 % (32.4-45.2); HEMOGLOBIN 10.3 GM/dL (10.7-15.3); LYMPH % 35.3 % (8-40); MCH 29.4 pg (25.7-33.7); MCHC 33.8 g/dl (32.0-36.0); MEAN CELL VOLUME 87.1 fl (80-96); MEAN PLT VOLUME 7.9 fl (7.5-11.1); MONO % 9.7 % (3.8-10.2); NEUT % 51.6 % (42.8-82.8); PLATELET COUNT 289 K/MM3 (134-434); RDW 13.1 % (11.6-15.6); WHITE BLOOD COUNT 9.3 K/mm3 (4.0-10.0)
[2018-10-12 08:12] LABS: BLOOD UREA NITROGEN 5.7 mg/dL (7-18); CALCIUM 8.5 mg/dL (8.5-10.1); CREATININE 0.6 mg/dL (0.55-1.3); MAGNESIUM 2.3 mg/dL (1.8-2.4); POTASSIUM 4.1 mmol/L (3.5-5.1)
[2018-10-12] MEDS ORDERED: DEXTROSE 5%-WATER 100 ML IVPB ONE (09:45)
[2018-10-12] MEDS: SODIUM CHLORIDE 0.9%/KCL 20 MEQ/1,000 ML INFUS.BAG IV SCH (09:55)
[2018-10-12] MEDS: CEFTRIAXONE 2 GM in DEXTROSE 5%-WATER 100 ML IVPB SCH (09:55)
[2018-10-12] MEDS: PANTOPRAZOLE 20 MG TABLET (FP) PO SCH (09:56)
[2018-10-12] MEDS ORDERED: ENOXAPARIN NA (PORCINE) 40 MG/0.4 ML DISP.SYRIN SQ SCH (10:00)
--- NOTE | 2018-10-12 14:18 | DS ---
Physical Exam: SUBJECTIVE: Patient seen and examined, no nausea, fevers, urinary or abdominal symptoms, feels well. OBJECTIVE: Vital Signs Period Temp Pulse Resp BP Sys/Farah Pulse Ox Last 24 Hr 98.3 F-99.1 F 65-103 18-18 107-135/57-75 98-98 Microbiology 10/09/18 16:35 Urine - Urine Clean Catch Urine Culture - Final Escherichia Coli 10/09/18 17:35 Blood - Peripheral Venous Blood Culture - Preliminary NO GROWTH OBTAINED AFTER 48 HOURS, INCUBATION TO CONTINUE FOR 3 DAYS. 10/09/18 15:25 Blood - Peripheral Venous Blood Culture - Preliminary NO GROWTH OBTAINED AFTER 48 HOURS, INCUBATION TO CONTINUE FOR 3 DAYS. PHYSICAL EXAM GENERAL: sitting in bed in no acute distress Neck: soft, supple, no JVD CVS:S1S2 regular Abdomen:soft, NT throughout, ND, pos bowel sounds, no CVA or suprapubic tenderness Chest: CTAB, no rales or wheezing Extremities: no edema psych: pleasant, co-operative LABS Laboratory Results - last 24 hr 10/12/18 10/12/18 07:23 07:23 WBC 9.3 RBC 3.50 L Hgb 10.3 L Hct 30.5 L MCV 87.1 MCH 29.4 MCHC 33.8 RDW 13.1 Plt Count 289 D MPV 7.9 Absolute Neuts (auto) 4.8 Neutrophils % 51.6 Lymphocytes % 35.3 D Monocytes % 9.7 Eosinophils % 2.9 D Basophils % 0.5 Nucleated RBC % 0 Sodium 144 Potassium 4.1 Chloride 110 H Carbon Dioxide 28 Anion Gap 6 L BUN 5.7 L Creatinine 0.6 Est GFR (CKD-EPI)AfAm 112.43 Est GFR (CKD-EPI)NonAf 97.01 Random Glucose 92 Calcium 8.5 Phosphorus 3.0 Magnesium 2.3 Microbiology 10/09/18 16:35 Urine - Urine Clean Catch Urine Culture - Final Escherichia Coli 10/09/18 17:35 Blood - Peripheral Venous Blood Culture - Preliminary NO GROWTH OBTAINED AFTER 48 HOURS, INCUBATION TO CONTINUE FOR 3 DAYS. 10/09/18 15:25 Blood - Peripheral Venous Blood Culture - Preliminary NO GROWTH OBTAINED AFTER 48 HOURS, INCUBATION TO CONTINUE FOR 3 DAYS. Renal/Bladder US: The right kidney measures 11.0 cm The left kidney measures 10.3 cm There is a 1.7 cm cyst midportion right kidney There are linear echogenic foci mid to upper pole left kidney which can be compatible with a stent. This should be correlated clinically and with additional imaging There is no hydronephrosis The prevoid volume of the bladder equals 322 cc. The post void residual equals 0. Both right and left ureteral jets identified The uterus measures 6.1 x 2.7 x 4.2 cm. The right ovary measures 2.6 x 1.4 x 1.4 cm The left ovary was not identified IMPRESSION: Small right renal cyst. Possible left renal or ureteral stent which should be confirmed clinically and with additional imaging if clinically warranted Small post void residual CT A/P without contrast: The liver, spleen, pancreas and adrenal glands are unremarkable. No gallstones are identified. There is no evidence of retroperitoneal lymphadenopathy or abdominal aortic aneurysm. There are inflammatory infiltration changes seen lateral and inferior to the right kidney. There may be dilatation of the right ureter. On coronal image 53 and sagittal image 49 there is a 5 mm calcification which could be in the distal right ureter.. No definitive mass identified but study limited by lack of IV contrast The appendix is not identified. Part of the inflammatory change or free fluid extends to the right colic gutter There is mural thickening of the urinary bladder but this may be secondary to its contraction The uterus is atrophic possibly partially surgically absent There is no evidence of bowel obstruction. There are no inflammatory changes of the colon. No fluid collections are identified. Impression: Possible inflammatory or infiltrative changes seen lateral and inferior to the right kidney suggestive of possible renal infection. There also appears to be dilatation of the right ureter. Possible calculus distal right ureter. However A passed calculus can mimic this finding but no stones seen in bladder. Recommend urology consult CT A/P with contrast: FINDINGS: 1 cm cyst right lobe of liver Wedgelike defect mid right kidney is with inflammatory changes noted compatible with acute pyelonephritis Both ureters are opacified on delayed images practically in their entirety and are grossly unremarkable Spleen, adrenal glands, pancreas bladder and uterus grossly unremarkable no evidence of bowel obstruction Appendix not identified No evidence of retroperitoneal lymphadenopathy or aortic aneurysm IMPRESSION: Wedge-shaped region mid right kidney with adjacent fatty stranding suspicious for acute pyelonephritis. HOSPITAL COURSE: Date of Admission:10/09/18 Date of Discharge: 10/12/18 Minutes to complete discharge: 40 Discharge Summary Reason For Visit: NAUSEA/CHILLS/FEVER Current Active Problems Sepsis (Acute) UTI (urinary tract infection) (Acute) Hospital Course: 63 yof with PMhx of HTN, no prior urological history, admitted with sepsis and cloudy urine. She was placed on Ceftriaxone and anti-hypertensives were held. Given persistent fevers, she had renal/bladder Ultrasound as above. She had spiral CT A/P showing right kidney inflammatory/infiltrative process on posterolateral aspect with suspected dilatation of right ureter and possible distal ureteral calculus vs passed stone. Urology was consulted, and no stone was noted per discussion with Dr. Castillo. She received CT urogram to assess for functional obstruction. Her CT urogram showed wedge shaped region right kidney suspicious for acute pyelonephritis but no evidence of stone concerns or obstructive changes. She never had any abdominal or flank symptoms and continued to have benign abdominal exam with no CVA tenderness. Infectious disease was consulted, she was transiently on meropenem. Her fevers resolved. Her urine cultures grew pansensitive E. Coli and she will be discharged on 10 days of levaquin. Her antihypertensives are being held on discharge. Condition: Stable - Instructions Diet, Activity, Other Instructions: You were admitted with urine infection and pyelonephritis. You improved on IV antibiotics. You had kidney ultrasound and CT scan of your belly. You were seen by urologist and infectious disease. MEDICATIONS: Antibiotic levaquin 500 mg daily for 10 more days starting tomorrow 10/13/2018 Hold your BP medication for now with instructions as below. INSTRUCTIONS: It is anticipated that over next week, you will be able to resume your BP medication. Advise home BP monitoring daily for now and if BP 130/80 or higher, please resume your BP medication or can discuss with your doctor. Maintain adequate hydration. Do not hold urine. FOLLOW UP: With Dr. Coleman in 1 week If you notice any new fevers, chills, urinary symptoms, belly or back pain or any new concerns, please call 911 or come to ED. Referrals: Estuardo Coleman MD [Primary Care Provider] - Disposition: HOME - Home Medications Comprehensive Discharge Medication List: Ambulatory Orders Levofloxacin [Levaquin] 500 mg PO DAILY #10 tablet 10/12/18 This patient is new to me today: No Emergency Visit: Yes ED Registration Date: 10/09/18 Care time: The patient presented to the Emergency Department on the above date and was hospitalized for further evaluation of their emergent condition. Critical Care patient: No - Discharge Referral Referred to [facility] No
[2018-10-12 15:15] VITALS: BP 124/74; PULSE 72; TEMP 97.9
== END 2018-10-12 15:52 | disposition home or self-care (01) | DRG 872 ==
LOC: JER 14:42 → JERBED 17:18 → J5S 18:37
PROVIDERS: ADMIT Hospitalist; ATTEND Hospitalist
DX: A41.9 Sepsis, unspecified organism (principal); N10 Acute pyelonephritis; I10 Essential (primary) hypertension; I95.9 Hypotension, unspecified; E86.0 Dehydration
CPT/HCPCS: 36415; 71045-TC-FY; 74176-TC; 74177-TC; 76775-TC; 76856-TC; 80048; 80053; 81003; 83605; 83690; 83735; 84100; 84484; 85025; 85610; 85730; 87040; 87086; 87186; 93005; 93010; 99285-25; J0131; J7030

== ENCOUNTER 2022-02-22 04:20 | Day surgery (SDC) | payer BC, OTHER ==
[2022-02-20 12:16] VITALS: BMI 27.1
[2022-02-22 12:47] VITALS: TEMP 98.6
[2022-02-22 13:20] VITALS: RESP 13
[2022-02-22 14:51] VITALS: BP 134/65; PULSE 75
== END 2022-02-22 13:30 | disposition home or self-care (01) ==
LOC: JASU-ENDO 04:20
PROVIDERS: ATTEND Internal Medicine Gastroenterology
PROC: 0DB78ZX Excision of Stomach, Pylorus, Via Natural or Artificial Opening Endoscopic, Diagnostic (ICD-10-PCS; 2022-02-22)
PROC: 0DB48ZX Excision of Esophagogastric Junction, Via Natural or Artificial Opening Endoscopic, Diagnostic (ICD-10-PCS; 2022-02-22)
PROC: 0DB98ZX Excision of Duodenum, Via Natural or Artificial Opening Endoscopic, Diagnostic (ICD-10-PCS; principal; 2022-02-22 12:00)
DX: K29.50 Unspecified chronic gastritis without bleeding (principal); B96.81 Helicobacter pylori [H. pylori] as the cause of diseases classified elsewhere; K21.00 Gastro-esophageal reflux disease with esophagitis, without bleeding; K44.9 Diaphragmatic hernia without obstruction or gangrene
CPT/HCPCS: 88305-TC; 88342-TC